=== PATIENT | male | born 1960 | race Caucasian/White ===

== ENCOUNTER → 2022-06-06 14:28 | Outpatient (CLI) | payer OTHER, SELFPAY ==
[2022-06-06 16:07] LABS: Hemoglobin 15.9 g/dL (13.5-17.5); Mean Corpuscular HGB Conc 33.8 % (30-36); Mean Corpuscular Volume 94.9 fL (80-100); Platelet Count 154 X10^3/uL (150-400); Red Blood Cell Count 4.96 X10^6/uL (4.5-5.9); Red Cell Distribution Width 13.6 % (11.6-14.8); White Blood Cell Count 5.9 X10^3/uL (4.5-11.0)
[2022-06-06 17:04] LABS: Alanine Aminotransferase 28 IU/L (<50); Albumin 4.7 g/dL (3.5-5.0); Albumin Globulin Ratio 1.4 (1.0-2.8); Alkaline Phosphatase 89 U/L (38-126); Aspartate Aminotransferase 28 IU/L (17-59); BUN Creatinine Ratio 17.2 (6-22); Bilirubin Total 0.9 mg/dL (0.2-1.3); Blood Urea Nitrogen 15 mg/dL (9-20); Calcium 10.7 mg/dL (8.4-10.2); Carbon Dioxide 29 mmol/L (22-32); Chloride 101 mmol/L (98-107); Cholesterol 255 mg/dL (140-199); Estimated Glomerular Filt Rate > 60 mL/min (>60); Globulin 3.3 g/dL (1.7-4.1); Glucose 82 mg/dL (80-110); HDL Cholesterol 43 mg/dL (40-60); HEMOLYSIS < 15 (0-50); LDL Cholesterol Calculated 190 mg/dL (<100); Potassium 4.4 mmol/L (3.4-5.1); Sodium 142 mmol/L (137-145); Triglycerides 110 mg/dL (35-150)
[2022-06-06 17:28] LABS: TSH w/ Reflex to FT4 0.87 uIU/mL (0.47-4.68)
[2022-06-06 17:33] LABS: Prostate Specific Antigen Scrn 0.279 ng/mL (0.1-4.0)
== END ==
PROVIDERS: PCP Internal Medicine; Referring Provider Internal Medicine; Visit Provider Internal Medicine
DX: E78.2 Mixed hyperlipidemia (principal); Z00.00 Encounter for general adult medical examination without abnormal findings; Z12.5 Encounter for screening for malignant neoplasm of prostate
CPT/HCPCS: 36415; 80053; 80061; 84443; 85027; G0103

== ENCOUNTER → 2023-11-26 16:40 | Outpatient (CLI) | payer OTHER, SELFPAY ==
[2023-11-26 17:11] LABS: Hematocrit 42.2 % (41-53); Hemoglobin 14.3 g/dL (13.5-17.5); Mean Corpuscular HGB Conc 33.7 % (30-36); Mean Corpuscular Hemoglobin 31.8 PG (26-34); Mean Corpuscular Volume 94.1 fL (80-100); Platelet Count 141 X10^3/uL (150-400); Red Blood Cell Count 4.49 X10^6/uL (4.5-5.9); Red Cell Distribution Width 14.5 % (11.6-14.8); White Blood Cell Count 5.5 X10^3/uL (4.5-11.0)
[2023-11-26 17:30] LABS: Alanine Aminotransferase 19 IU/L (<50); Albumin 4.4 g/dL (3.5-5.0); Albumin Globulin Ratio 1.5 (1.0-2.8); Alkaline Phosphatase 93 U/L (38-126); Aspartate Aminotransferase 25 IU/L (17-59); BUN Creatinine Ratio 15.4 (6-22); Bilirubin Total 0.8 mg/dL (0.2-1.3); Blood Urea Nitrogen 12 mg/dL (9-20); Calcium 10.5 mg/dL (8.4-10.2); Carbon Dioxide 26 mmol/L (22-32); Chloride 109 mmol/L (98-107); Cholesterol 216 mg/dL (140-199); Estimated Glomerular Filt Rate > 60 mL/min (>60); Glucose 94 mg/dL (80-110); HDL Cholesterol 50 mg/dL (40-60); HEMOLYSIS < 15 (0-50); LDL Cholesterol Calculated 148 mg/dL (<100); Potassium 4.6 mmol/L (3.4-5.1); Sodium 139 mmol/L (137-145); Total Protein 7.4 g/dL (6.3-8.2); Triglycerides 91 mg/dL (35-150)
[2023-11-26 17:36] LABS: Hemoglobin A1C% w Est Avg Glu 5.6 % (4.0-6.0)
[2023-11-26 18:04] LABS: TSH w/ Reflex to FT4 0.73 uIU/mL (0.47-4.68)
== END ==
PROVIDERS: PCP Internal Medicine; Referring Provider Internal Medicine; Visit Provider Internal Medicine
DX: Z00.00 Encounter for general adult medical examination without abnormal findings (principal); Z12.5 Encounter for screening for malignant neoplasm of prostate; R73.01 Impaired fasting glucose; E78.2 Mixed hyperlipidemia
CPT/HCPCS: 36415; 80053; 80061; 83036; 84443; 85027; G0103

== ENCOUNTER 2023-12-08 12:23 | Emergency (ER) | payer OTHER, SELFPAY ==
[2023-12-08 12:40] VITALS: PULSE 55; O2SAT 99
[2023-12-08 12:42] VITALS: BP 159/78; PULSE 57; RESP 16; TEMP 36.4; O2SAT 98; BMI 27.0
--- NOTE | 2023-12-08 12:51 | ED.GENADULT ---
HPI - General Adult General Chief complaint: Abdominal Pain Stated complaint: lower left side px Time Seen by Provider: 12/08/23 12:43 Source: patient Mode of arrival: Ambulatory History of Present Illness HPI narrative: 63-year-old male with a history of a sigmoid colectomy here for evaluation of left lower quadrant abdominal pain and a bulging. He states has been present for the past 3 days. It is somewhat better when he was lying down. Worse when he was standing and walking. Has not had any change in bowel movements but he was told by the operative surgeon that if he were to start having issues with constipation that he should start taking some Colace which he has been doing for the past couple days. No problems urinating. No fevers. No vomiting. He describes it as a burning sensation in his left lower abdomen radiating down to the groin. No history of kidney stones. Related Data Previous Rx's Medication Instructions Recorded rosuvastatin 10 mg tablet 10 mg PO DAILY #90 tabs 11/26/23 hydrocodone 5 mg-acetaminophen 325 1 tab PO Q4-6H PRN pain #10 tabs 12/08/23 mg tablet ondansetron 4 mg disintegrating 4 mg PO Q6H PRN nausea and 12/08/23 tablet vomiting #10 tabs Allergies Allergy/AdvReac Type Severity Reaction Status Date / Time adhesive [ADHESIVE] AdvReac Intermediate TAPE:SKIN Verified 12/08/23 12:41 INFECTIONS, CELLULTITIS latex AdvReac Mild Blister Verified 12/08/23 12:41 Penicillins [PENICILLINS] AdvReac Unknown Hives Verified 12/08/23 12:41 COBAN WRAP AdvReac Mild SWELLING/RA Uncoded 11/26/23 12:13 Review of Systems Review of Systems Narrative: See HPI Patient History Medical History History of colonic polyps Acne Overweight Mixed hyperlipidemia Encounter for general adult medical examination without abnormal findings Social History details: , 5 children, 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 Has a hernia that is easily felt in the left inguinal region. It is somewhat reducible on exam. This is where he was having quite a bit of discomfort. Other: Normal testicular exam. Skin General: no rashes or lesions noted Course Orders Ordered: ED Orders 12/08/23 12:42 Complete Blood Count AUTO DIFF Stat Comprehensive Metabolic Panel Stat Lactate (Lactic Acid) Stat Lipase Stat 12/08/23 12:51 CT abdomen pelvis w con Stat 12/08/23 13:46 Consult to General Surgery Stat Discontinued Medications Sodium Chloride (Normal Saline 0.9%) 1,000 mls @ 1,000 mls/hr IV BOLUS ONE Stop: 12/08/23 13:50 Last Admin: 12/08/23 13:10 Dose: 1,000 mls/hr Documented By: MICHAEL Vital Signs Vital signs: Vital Signs - 8 hr 12/08/23 12:40 12/08/23 12:42 Temperature 97.5 F L Pulse Rate 55 L 57 L Respiratory Rate 16 Blood Pressure 159/78 H Pulse Oximetry 99 98 Oxygen Delivery Method Room Air Medical Decision Making Medical Records Medical records reviewed: Yes I reviewed the patient's medical records. Lab Data Lab results reviewed: Yes I reviewed the patient's lab results. 12/08/23 12:42 12/08/23 12:42 Labs: Lab Results 12/08/23 Range/Units 12:42 WBC 5.9 (4.5-11.0) X10^3/uL RBC 4.72 (4.5-5.9) X10^6/uL Hgb 15.0 (13.5-17.5) g/dL Hct 44.5 (41-53) % MCV 94.3 (80-100) fL MCH 31.7 (26-34) PG MCHC 33.6 (30-36) % RDW 14.0 (11.6-14.8) % Plt Count 162 (150-400) X10^3/uL Neut % (Auto) 61.1 (50-75) % Lymph % (Auto) 25.8 (25-40) % Eagle % (Auto) 9.4 (3-14) % Eos % (Auto) 3.1 (2-4) % Baso % (Auto) 0.6 (0-2) % Neut # (Auto) 3600 (3242-9120) /uL Lymph # (Auto) 1500 (4654-5065) /uL Eagle # (Auto) 500 (0-900) /uL Eos # (Auto) 200 (0-450) /uL Baso # (Auto) 0 (0-100) /uL Sodium 141 (137-145) mmol/L Potassium 4.6 (3.4-5.1) mmol/L Chloride 109 H (98-107) mmol/L Carbon Dioxide 25 (22-32) mmol/L BUN 12 (9-20) mg/dL Creatinine 0.77 (0.66-1.25) mg/dL Estimated GFR > 60 (>60) mL/min BUN/Creatinine Ratio 15.6 (6-22) Glucose 94 (80-110) mg/dL Lactate 1.0 (0.7-2.1) mmol/L Calcium 10.5 H (8.4-10.2) mg/dL Total Bilirubin 1.1 (0.2-1.3) mg/dL AST 28 (17-59) IU/L ALT 19 (<50) IU/L Alkaline Phosphatase 107 (38-126) U/L Total Protein 7.6 (6.3-8.2) g/dL Albumin 4.4 (3.5-5.0) g/dL Globulin 3.2 (1.7-4.1) g/dL Albumin/Globulin Ratio 1.4 (1.0-2.8) Lipase 41 (23-300) U/L Imaging Data CT scan - abdomen/pelvis: Radiologist's Impression: PROCEDURE: CT ABDOMEN PELVIS W CON INDICATIONS: Left-sided abdominal pain with a presumed hernia TECHNIQUE: After the administration of intravenous contrast, axial sections acquired from the lung bases to the pubic symphysis. Coronal and sagittal reformats were performed. For radiation dose reduction, the following was used: automated exposure control, adjustment of mA and/or kV according to patient size. COMPARISON: None. FINDINGS: Image quality: Diagnostic. Lower Chest: No significant findings. ABDOMEN: Liver: Subcentimeter hypoattenuating lesion at the liver dome , too small to characterize by CT. Gallbladder: No radiopaque gallstones or wall thickening. Biliary ducts: No biliary dilation. Pancreas: No ductal dilation. Spleen: Size is within normal limits. Adrenal Glands: No adrenal nodules. Kidneys and Ureters: No hydronephrosis. No solid mass. No complex renal cystic lesion which requires follow up. Stomach and Bowel: Normal colonic caliber, without significant wall thickening. Partial colectomy. No significant diverticular disease. Normal appendix. Peritoneum: No abnormal intraperitoneal fluid. No free air. Small focus of intraperitoneal fat necrosis in the left upper quadrant (series 2, image 23). Ventral Wall: No significant ventral hernia. Abdominal Nodes: No retroperitoneal or mesenteric adenopathy by size criteria. Vessels: Aorta and inferior vena cava are normal in size. PELVIS: Pelvic Organs: Unremarkable. Bladder: No bladder wall thickening, accounting for underdistention. Pelvic Nodes: No enlarged lymph nodes. Miscellaneous: Small left inguinal hernia containing inflamed fat. Small right inguinal hernia containing noninflamed fat. Bones: No aggressive osseous abnormality. Degenerative disc disease of the lumbar spine. Opposing endplate sclerosis at L2-3. IMPRESSION: Small left inguinal hernia containing inflamed fat. Small focus of intraperitoneal fat necrosis in the left upper quadrant. MDM Narrative Medical decision making narrative: Patient does have a reducible left-sided inguinal hernia. CT scan shows no signs of incarceration or strangulation. Patient is vomiting and is having bowel movements. Discussed case with Dr. Mckenzie on-call with General surgery. Will have the patient follow-up as an outpatient. He was given information with regard to this. He was given return precautions follow-up instructions. He expressed understanding and agreement. Discharge Plan Departure Patient Disposition: Home Clinical Impression: Inguinal hernia Instructions: Groin Hernia -- Adult Activity Restrictions/Additional Instructions: Use the pain medicine and nausea medication as directed and as needed. Recommend you contact the general surgery office in the number provided below for follow-up. Return to the emergency department for new symptoms. Prescriptions: New hydrocodone-acetaminophen 5-325 mg tablet 1 tab PO Q4-6H PRN (Reason: pain) Qty: 10 0RF ondansetron 4 mg tablet,disintegrating 4 mg PO Q6H PRN (Reason: nausea and vomiting) Qty: 10 0RF No Action rosuvastatin 10 mg tablet 10 mg PO DAILY Qty: 90 3RF Referrals: Gera Mckenzie MD [Physician] - Amol Gilmore MD [Primary Care Provider] - Stand Alone Forms: Patient Portal/API
[2023-12-08] MEDS: SODIUM CHLORIDE 0.9% 1,000 ML 1000 ML IV (13:10)
[2023-12-08 13:15] LABS: Alanine Aminotransferase 19 IU/L (<50); Albumin 4.4 g/dL (3.5-5.0); Albumin Globulin Ratio 1.4 (1.0-2.8); Alkaline Phosphatase 107 U/L (38-126); Aspartate Aminotransferase 28 IU/L (17-59); BUN Creatinine Ratio 15.6 (6-22); Bilirubin Total 1.1 mg/dL (0.2-1.3); Blood Urea Nitrogen 12 mg/dL (9-20); Calcium 10.5 mg/dL (8.4-10.2); Carbon Dioxide 25 mmol/L (22-32); Chloride 109 mmol/L (98-107); Estimated Glomerular Filt Rate > 60 mL/min (>60); Globulin 3.2 g/dL (1.7-4.1); Glucose 94 mg/dL (80-110); HEMOLYSIS < 15 (0-50); Lipase 41 U/L (23-300); Potassium 4.6 mmol/L (3.4-5.1); Sodium 141 mmol/L (137-145); Total Protein 7.6 g/dL (6.3-8.2)
[2023-12-08 13:18] LABS: Add Manual Diff / Slide Review NO; Basophils Absolute Auto 0 /uL (0-100); Basophils Percent Auto 0.6 % (0-2); Eosinophils Absolute Auto 200 /uL (0-450); Eosinophils Percent Auto 3.1 % (2-4); Hematocrit 44.5 % (41-53); Lymphocytes Absolute Auto 1500 /uL (1100-4500); Lymphocytes Percent Auto 25.8 % (25-40); Mean Corpuscular HGB Conc 33.6 % (30-36); Mean Corpuscular Hemoglobin 31.7 PG (26-34); Mean Corpuscular Volume 94.3 fL (80-100); Monocytes Absolute Auto 500 /uL (0-900); Monocytes Percent Auto 9.4 % (3-14); Neutrophils Absolute Auto 3600 /uL (1500-7000); Neutrophils Percent Auto 61.1 % (50-75); Platelet Count 162 X10^3/uL (150-400); Red Blood Cell Count 4.72 X10^6/uL (4.5-5.9); White Blood Cell Count 5.9 X10^3/uL (4.5-11.0)
[2023-12-08 14:04] VITALS: BP 138/73; PULSE 53; RESP 20; TEMP 37; O2SAT 98
== END 2023-12-08 14:04 | disposition home or self-care (01) ==
PROVIDERS: Emergency Provider Emergency Medicine; PCP Internal Medicine
DX: K40.90 Unilateral inguinal hernia, without obstruction or gangrene, not specified as recurrent (principal)
CPT/HCPCS: 74177; 80053; 83605; 83690; 85025; 99283; 99284; Q9967

== ENCOUNTER 2023-12-15 09:21 | Day surgery (SDC) | payer OTHER, SELFPAY ==
[2023-12-10 12:41] VITALS: BMI 27.0
[2023-12-15] VITALS (10 sets, daily range): BP systolic 94–132; BP diastolic 57–81; PULSE 48–62; RESP 12–20; TEMP 36.1–36.6; O2SAT 95–98; BMI 27.0
[2023-12-15] MEDS: LACTATED RINGERS 1,000 ML 42 ML IV (09:58)
[2023-12-15] MEDS: ACETAMINOPHEN 325 MG TABLET 975 MG PO (10:04)
--- NOTE | 2023-12-15 10:54 | PM.PREOP ---
Pre-operative Note COVID-19 COVID-19 status: Not tested Interval Note History & Physical reviewed/Exam performed by Physician: Yes Changes to H&P: No ASA Class (for procedural sedation): II
[2023-12-15] MEDS: CEFAZOLIN 2 GM/100 ML PREMIX 100 ML IV (11:14)
--- NOTE | 2023-12-15 11:24 | SUR.OPER ---
Supine on padded OR bed, head on pillow, arms secured on padded arm boards at <90 degrees abduction, legs uncrossed, safety belt at thigh, tape over blanket over lower legs. CONFIRMED BY
[2023-12-15] MEDS: BUPIVACAINE 0.5% W/ EPI (PF) 30 ML VIAL INJ (11:29)
--- NOTE | 2023-12-15 12:14 | P.OP_ITS ---
Operative Date/Time/Diagnoses Date of procedure: 12/15/23 Time of procedure: 12:14 Pre-op diagnosis: Left inguinal hernia Post-op diagnosis: same Procedure & Clinicians Procedure: Open left inguinal hernia repair with mesh Same procedure as scheduled: Yes Surgeon: Gera Mckenzie Click Yes if Unassisted: Yes Anesthesia Type: General Operative Notes Procedure in detail: Preoperative antibiotic was administered. The patient was brought to the o perating room and placed on the table in supine position general anesthesia was induced. The left groin was prepped and draped in the normal fashion and a time-out was performed. Roughly 10 mL of local anesthetic were injected into the skin and subcutaneous adipose tissue over the left groin. A 6 cm incision was made over the left inguinal canal. Dissection was carried down through the subcutaneous adipose tissue. A bridging vein was cauterized. We exposed the external oblique aponeurosis in the direction of the fibers. Additional local was injected deep to the aponeurosis. A 15 blade scalpel was used to jonny the external oblique aponeurosis. Metzenbaum scissors were used to carefully open the aponeurosis in the direction of the fibers taking care not to injure the underlying ilioinguinal nerve which was well seen and protected. We completely exposed the inguinal canal. The cord was dissected free from the inguinal ligament and floor of the inguinal canal and the external oblique aponeurosis was dissected off of the internal oblique taking care not to injure the hypogastric nerve. We encircled the cord with a Jose drain for retraction. There was an indirect hernia and a fatty cord lipoma that were dissected off the cord structures and reduced back into the abdominal cavity. We placed a polypropylene mesh over the inguinal canal floor. The mesh was secured with multiple interrupted 3-0 Prolene sutures to the pubic tubercle and shelving edge of the inguinal ligament as well as to the conjoint tendon medially. We overlapped the tails to recreate an internal ring and secured the medial tail to the inguinal ligament with additional sutures. We injected some more local into the fatty tissue in the inguinal canal and cord. Finally, we removed the [place] drain and closed the external oblique fascia with a running 3-0 Vicryl suture. Skin was closed with interrupted 3-0 Vicryl dermal sutures and a running 4 Monocryl subcuticular stitch. EBL 5 mL The patient was awakened and brought to recovery room. Post-operative Condition: stable Disposition: PACU
[2023-12-15] MEDS: fentaNYL 100 MCG/2 ML INJ IV ×2 (12:49→12:59)
[2023-12-15] MEDS: hydrOXYzine 50 MG/ML INJ 25 MG IM (12:54)
[2023-12-15] MEDS: OXYCODONE IR 5 MG TABLET PO (13:06)
== END 2023-12-15 14:12 | disposition home or self-care (01) ==
PROVIDERS: PCP Internal Medicine; Referring Provider Surgery; Visit Provider Surgery
PROC: (CPT 49505; principal; 2023-12-15 11:00)
DX: K40.90 Unilateral inguinal hernia, without obstruction or gangrene, not specified as recurrent (principal); D17.6 Benign lipomatous neoplasm of spermatic cord
CPT/HCPCS: 49505; J0690; J1100; J2405; J2704; J3010; J3410

== ENCOUNTER → 2024-02-05 09:36 | Outpatient (CLI) | payer OTHER, SELFPAY ==
[2024-02-05 11:23] LABS: Aspartate Aminotransferase 28 IU/L (17-59); Cholesterol 234 mg/dL (140-199); HDL Cholesterol 57 mg/dL (40-60); LDL Cholesterol Calculated 166 mg/dL (<100); Triglycerides 53 mg/dL (35-150)
== END ==
PROVIDERS: PCP Internal Medicine; Referring Provider Internal Medicine; Visit Provider Internal Medicine
DX: E78.2 Mixed hyperlipidemia (principal)
CPT/HCPCS: 36415; 80061; 84450

== ENCOUNTER 2024-05-04 11:56 | Day surgery (SDC) | payer OTHER, SELFPAY ==
--- NOTE | 2024-05-04 | PATH_ITS ---
[facility] Accession Number: [id number] No. of containers..01 Tissue . 01 Material submitted: . rectum - RECTAL POLYP . 01 Diagnosis: RECTAL POLYP: Tubular adenoma. STO 05/06/2024 1156 Local . 01 Electronically signed: . Sonido Hart MD, Pathologist NPI- [id number] . 01 Gross description: . Received in formalin with two patient identifiers and rectal polyp, are two angela soft tissue fragments, 0.5 to 0.7 cm in greatest dimension, submitted in A1. ([id number]) /MRV 05/06/2024 1156 Local . 01 Pathologist provided ICD-10: D12.8 . 01 CPT . 450556 Specimen Comment: A courtesy copy of this report has been sent to [phone] Performed at: [address] [facility] [id number] MD Sonido Hart MD Phone: [phone]
[2024-05-04 12:27] VITALS: BP 121/78; PULSE 66; RESP 18; TEMP 36.6; O2SAT 99
--- NOTE | 2024-05-04 13:42 | PM.HP.1 ---
History of Present Illness History of Present Illness Date Patient Seen: 05/04/24 Time Patient Seen: 13:43 Chief complaint: SDC Narrative: 63-year-old man here for 1st time screening colonoscopy. He has a history of a sigmoid colectomy for perforated diverticular disease. No family history of colon cancer. 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 Smoking Status: Never smoker alcohol intake: never Meds Home Medications and Allergies Home Medications Medication Instructions Recorded Confirmed Type rosuvastatin 10 mg tablet 10 mg PO DAILY #90 tabs 11/26/23 01/12/24 Rx peg 3350-sod sulf,elquh-bdd-uvg 1,000 ml PO DIRECTED #2,000 mL 02/24/24 Rx 178.7-7.3-0.5-1.12-0.9 gram oral soln (Suflave) Allergies Allergy/AdvReac Type Severity Reaction Status Date / Time adhesive [ADHESIVE] AdvReac Intermediate TAPE:SKIN Verified 02/05/24 08:58 INFECTIONS, CELLULTITIS latex AdvReac Mild Blister Verified 01/12/24 10:43 Penicillins [PENICILLINS] AdvReac Unknown Hives Verified 01/12/24 10:43 COBAN WRAP AdvReac Mild SWELLING/RA Uncoded 01/12/24 10:43 SH Exam Vital Signs (past 8 hours): - 05/04/24 12:27 Temperature 97.8 F Pulse Rate 66 Respiratory Rate 18 Blood Pressure 121/78 Pulse Oximetry 99 Oxygen Delivery Method Room Air Oxygen Delivery Method Room Air Narrative Exam Narrative: General adult man alert oriented no acute distress Chest nonlabored respiration Extremities warm well perfused Assessment & Plan Assessment & Plan narrative: The patient requires colorectal screening and colonoscopy is recommended. Technical details were discussed. Risks, benefits, alternatives explained. Risks including but not limited to myocardial infarction, aspiration, bleeding, pain, missed lesion, incomplete examination, need for further radiographic studies, intestinal injury, and need for major abdominal surgery were discussed. All questions were answered to their satisfaction, and they are in agreement with this plan. Time-Based Coding :: [TOTAL MINUTES] spent with patient and on the chart (including review of chart, obtaining history, exam, reviewing outside data, placing orders, documenting exam and treatment plan, and counseling patient) on [DATE].
[2024-05-04 14:02] VITALS: BP 98/69; PULSE 68; RESP 12; TEMP 36.2; O2SAT 96
[2024-05-04 14:07] VITALS: BP 105/68; PULSE 69; RESP 12; O2SAT 96
--- NOTE | 2024-05-04 14:08 | P.OP.COLON_ITS ---
Operative Date/Time/Diagnoses Date of procedure: 05/04/24 Time of procedure: 14:08 Pre-op diagnosis: Colorectal screening Post-op diagnosis: other (Colonic polyp x1) Procedure & Clinicians Study performed: Colonoscopy and polypectomy Indications: Screening Surgeon: Galileo Das Procedure Notes Procedure in detail: The history and physical was performed/updated and the patient is ASA class is 2. The procedure was discussed in detail with the patient. Potential risks complications including infection, bleeding, missed diagnosis, perforation, need for surgery, and were explained. Their questions were answered and informed consent was obtained. Patient was brought to the procedure room and placed standard monitoring equipment. The patient's vital signs were monitored continuously throughout the entire procedure. Prior to starting time-out was performed. The patient was placed in the left lateral recumbent position. Procedural sedation was administered by anesthesia. Examination began with a thorough inspection of the perianal area there was no evidence of fissures, fistulae, external hemorrhoids or cutaneous malignancy. The colonoscopy scope was then placed into the anal canal and was advanced to the cecum, which was identified by the ileocecal valve, the appendiceal orifice and the confluence of the taenia. The scope was then slowly withdrawn examining colon thoroughly in all directions, irrigating it of any residual stool. The scope was retroflexed within the rectum The patient tolerated the procedure well. They will be discharged once criteria are met. The prep was of good/excellent quality. The withdrawl time was 7 mi nutes. FINDINGS * Normal colorectal anastomosis * Rectal polyp 5 mm removed with cold snare * Mild diverticulosis of distal colon Specimen(s): other (Rectal polyp) Impression: Colonic polyp x1 Post-procedure Recommendations: High fiber diet Plan for aftercare: Follow up dependent on pathology findings likely 5 years Disposition: same day surgery
[2024-05-04 14:12] VITALS: BP 104/74; PULSE 61; RESP 19; TEMP 37.1; O2SAT 97
== END 2024-05-04 14:27 | disposition home or self-care (01) ==
PROVIDERS: PCP Internal Medicine; Referring Provider Surgery; Visit Provider Surgery
PROC: 0DJD8ZZ Inspection of Lower Intestinal Tract, Via Natural or Artificial Opening Endoscopic (ICD-10-PCS; CPT 45378; principal; 2024-05-04 13:15)
DX: Z12.11 Encounter for screening for malignant neoplasm of colon (principal); K57.30 Diverticulosis of large intestine without perforation or abscess without bleeding; D12.8 Benign neoplasm of rectum
CPT/HCPCS: 45385; J2704

== ENCOUNTER → 2025-02-16 09:08 | Outpatient (CLI) | payer MEDICARE, SELFPAY ==
[2025-02-16 10:07] LABS: Hemoglobin A1C% w Est Avg Glu 5.5 % (4.0-6.0)
[2025-02-16 10:21] LABS: Blood Urea Nitrogen 19 mg/dL (9-20); Calcium 10.7 mg/dL (8.4-10.2); Carbon Dioxide 26 mmol/L (22-32); Chloride 106 mmol/L (98-107); Cholesterol 144 mg/dL (140-199); Estimated Glomerular Filt Rate > 60 mL/min (>60); Glucose 96 mg/dL (70-99); HDL Cholesterol 57 mg/dL (40-60); HEMOLYSIS < 15 (0-50); Potassium 4.7 mmol/L (3.4-5.1); Sodium 140 mmol/L (137-145); Triglycerides 55 mg/dL (35-150)
[2025-02-16 10:50] LABS: Prostate Specific Antigen 0.276 ng/mL (0.10-4.00)
== END ==
PROVIDERS: PCP Internal Medicine; Referring Provider Internal Medicine; Visit Provider Internal Medicine
DX: R73.01 Impaired fasting glucose (principal); E78.2 Mixed hyperlipidemia; N40.1 Benign prostatic hyperplasia with lower urinary tract symptoms; N13.8 Other obstructive and reflux uropathy
CPT/HCPCS: 36415; 80048; 80061; 83036; 84153; 84450